=== PATIENT | male | born 1975 | race Caucasian/White ===

== ENCOUNTER 2019-01-12 23:49 | Emergency (ER) | payer SELFPAY ==
[~2019-01-12] VITALS: Ht 170.2 cm; Wt 72.7 kg
[2019-01-13 00:07] VITALS: BP 151/88; TEMP 98
[2019-01-13] MEDS ORDERED: PRINZIDE 12.5 M1 TAB PO (01:38)
[2019-01-13 01:39] LABS: BASO % 0.4 % (0.0-2.0); EOS # 0.1 (0.0-0.7); EOS % 0.8 % (0-4.0); GRAN # 8.4 (1.4-6.5); GRAN % 79.9 % (42.2-75.2); HEMATOCRIT 41.8 % (42.0-52.0); HEMOGLOBIN 14.4 g/dl (13.5-18.0); LYMPH # 1.2 (1.2-3.4); LYMPH % 11.2 % (20.0-51.0); MEAN CELL VOLUME 89 fl (80.0-100.0); MEAN CORPUSCULAR HEMOGLOBIN 31 pg (27.0-31.0); MEAN CORPUSCULAR HGB CONC 34 g/dl (33.0-37.0); MEAN PLATELET VOLUME 9.6 fl (7.4-10.4); MONO # 0.8 (0.1-0.6); MONO % 7.3 % (1.7-9.3); PLATELET COUNT 252 K/mm3 (130-400); RED BLOOD COUNT 4.68 M/mm3 (4.20-5.60); REDCELL DISTRIBUTION WIDTH-CV 12.6 % (11.5-14.5)
[2019-01-13] MEDS ORDERED: PREVACID 15MG15 M1 PO (01:39)
[2019-01-13 01:43] LABS: PROTHROMBIN TIME 11.6 SECONDS (9.7-12.8)
[2019-01-13 01:48] LABS: ALANINE AMINOTRANSFERASE 100 U/L (21-72); ALBUMIN 4.1 gm/dL (3.5-5.0); ALKALINE PHOSPHATASE 74 U/L (50-136); ANION GAP 11 mmol/L (7-16); AST,SGOT 107 U/L (15-37); BILIRUBIN,TOTAL 0.6 mg/dL (0.0-1.0); BLOOD UREA NITROGEN 21 mg/dL (9-20); CALCIUM 9.5 mg/dL (8.4-10.2); CARBON DIOXIDE 26 mmol/L (22-30); CHLORIDE 105 mmol/L (98-107); CREATININE, serum 1.01 (0.66-1.25); GLUCOSE 115 mg/dL (74-106); LIPASE 75 U/L (23-300); POTASSIUM 3.8 mmol/L (3.4-5.0); SODIUM 142 mmol/L (137-145); TOTAL PROTEIN 7.3 gm/dL (6.4-8.2)
[2019-01-13 02:03] LABS: TROPONIN-I < 0.012 ng/mL (0.000-0.035)
[2019-01-13] MEDS ORDERED: PEPCID 20MG TAB20 MG PO (04:02)
[2019-01-13 04:17] VITALS: PULSE 79
== END 2019-01-13 04:17 | disposition home or self-care (01) ==
LOC: COL.ER 23:49
PROVIDERS: Emergency Medicine
DX: K29.70 Gastritis, unspecified, without bleeding (principal); I10 Essential (primary) hypertension; K21.9 Gastro-esophageal reflux disease without esophagitis
CPT/HCPCS: C9113; J2405; J3010; J7030; Q9967

== ENCOUNTER 2019-01-19 03:14 | Emergency (ER) | payer SELFPAY ==
[~2019-01-19] VITALS: Ht 170.2 cm; Wt 70.5 kg
[~2019-01-19 03:14] MED LIST: PEPCID 20MG TAB20 MG PO; PREVACID 15MG15 M1 PO; PRINZIDE 12.5 M1 TAB PO
[2019-01-19 05:19] LABS: BASO # 0.1 (0.0-0.2); BASO % 0.5 % (0.0-2.0); EOS # 0.1 (0.0-0.7); EOS % 0.5 % (0-4.0); GRAN # 9.2 (1.4-6.5); GRAN % 82.3 % (42.2-75.2); HEMATOCRIT 44.5 % (42.0-52.0); HEMOGLOBIN 14.8 g/dl (13.5-18.0); LYMPH # 1.2 (1.2-3.4); LYMPH % 10.5 % (20.0-51.0); MEAN CELL VOLUME 91 fl (80.0-100.0); MEAN CORPUSCULAR HEMOGLOBIN 30 pg (27.0-31.0); MEAN CORPUSCULAR HGB CONC 33 g/dl (33.0-37.0); MEAN PLATELET VOLUME 9.6 fl (7.4-10.4); MONO # 0.7 (0.1-0.6); MONO % 5.8 % (1.7-9.3); PLATELET COUNT 232 K/mm3 (130-400); RED BLOOD COUNT 4.88 M/mm3 (4.20-5.60); REDCELL DISTRIBUTION WIDTH-CV 12.5 % (11.5-14.5)
[2019-01-19 05:37] LABS: ALBUMIN 4.4 gm/dL (3.5-5.0); C-REACTIVE PROTEIN 0.6 mg/dL (0.0-0.9); CALCIUM 9.4 mg/dL (8.4-10.2); CREATININE, serum 1.1 (0.66-1.25); POTASSIUM 3.7 mmol/L (3.4-5.0); TOTAL PROTEIN 7.7 gm/dL (6.4-8.2)
[2019-01-19] MEDS ORDERED: NORCO 325 MG-51 TAB PO (06:51)
[2019-01-19] MEDS ORDERED: ZOFRAN ODT4 MG PO (06:51)
[2019-01-19 07:25] VITALS: BP 161/86; PULSE 73; TEMP 98.2
== END 2019-01-19 07:25 | disposition home or self-care (01) ==
LOC: COL.ER 03:14
PROVIDERS: Emergency Medicine
DX: R10.13 Epigastric pain (principal); R10.11 Right upper quadrant pain; I10 Essential (primary) hypertension; K21.9 Gastro-esophageal reflux disease without esophagitis; Z87.442 Personal history of urinary calculi
CPT/HCPCS: J0500; J1170; J2405; J7030

== ENCOUNTER → 2019-01-24 | Outpatient (CLI) | payer SELFPAY ==
[~2019-01-24] MED LIST changes: +COLACE 100100 MG/CAP PO; +MOTRIN 600600 MG/TAB PO; +NORCO 325 MG-51 TAB PO; +ZOFRAN ODT4 MG PO
== END ==
LOC: COL.RAD 09:00
DX: K80.20 Calculus of gallbladder without cholecystitis without obstruction (principal)

== ENCOUNTER 2019-01-25 05:30 | Day surgery (SDC) | payer SELFPAY ==
[2019-01-25] VITALS (8 sets, daily range): BP systolic 111–119; BP diastolic 55–83; PULSE 65–88; TEMP 97.4–97.7
[~2019-01-25] VITALS: Ht 170.2 cm; Wt 70.6 kg
[~2019-01-25 05:30] MED LIST changes: -COLACE 100100 MG/CAP PO; -MOTRIN 600600 MG/TAB PO
--- NOTE | 2019-01-25 06:11 | NUR ---
TO RM 8 AT 0546- CALL LIGHT IN REACH AT BEDSIDE.
[2019-01-25] MEDS ORDERED: NORCO 325 MG-51 TAB PO (09:08)
[2019-01-25] MEDS ORDERED: COLACE 100100 MG/CAP PO (09:08)
[2019-01-25] MEDS ORDERED: MOTRIN 600600 MG/TAB PO (09:08)
--- NOTE | 2019-01-25 09:50 | NUR ---
TO RM 8 PER CART FROM PACU. ALERT ORIENTED X3, TALKING TO STAFF AND . C/O " GAS DISCOMFORT AND NOT PAIN" INCISION COVERED WITH CONNER SET, CLEAN DRY INTACT. DENIES NAUSEA RECEIVED WATER. AT BEDSIDE. ABDOMEN SOFT AND NONDISTENDED.
--- NOTE | 2019-01-25 10:05 | NUR ---
RECEIVED CRACKERS AND NO OTHER CHANGES
--- NOTE | 2019-01-25 10:20 | NUR ---
ATE 1PKT OF CRACKERS AND TOLERATED WELL.
--- NOTE | 2019-01-25 10:50 | NUR ---
ENCOURAGED PATIENT TO PASS "GAS" HE WOULD FEEL BETTER. ATE 2ND PKT OF CRACKERS.
--- NOTE | 2019-01-25 11:35 | NUR ---
C/O INCREASED ABDOIMINAL PAIN 11/12. RECEIVED NORCO 5/325MG.
--- NOTE | 2019-01-25 12:00 | NUR ---
PATIENT STATED HE HAS BEEN PASSING GAS, BUT STILL C/O FEELING BLOATED. INCISION SITES STILL CLEAN DRY INTACT. AMBULATED TO BATHROOM WITH ASSIST AND TOLERATED WELL. VOIDED AND AMBULATED BACK TO
--- NOTE | 2019-01-25 12:15 | NUR ---
RECEIVED DISCHARGE INSTRUCTIONS AND VERBALIZED UNDERSTANDING. DISCONTINUED IV AND INT- CATHETER INTACT.
--- NOTE | 2019-01-25 12:25 | NUR ---
DISCHARGED PER WC BY NURSING STAFF TO PRIVATE CAR IN CARE OF RADHA.
== END 2019-01-25 12:43 | disposition home or self-care (01) ==
LOC: SDCO 05:30
DX: K80.10 Calculus of gallbladder with chronic cholecystitis without obstruction (principal); I10 Essential (primary) hypertension; Z79.899 Other long term (current) drug therapy; K21.9 Gastro-esophageal reflux disease without esophagitis; Z80.9 Family history of malignant neoplasm, unspecified
CPT/HCPCS: J0690; J1100; J1885; J2250; J2405; J2704; J2710; J3010; J7120; Q9967